=== PATIENT | male | born 1990 | race Caucasian/White ===

== ENCOUNTER → 2023-03-28 | Outpatient (CLI) | payer OTHER | END | disposition home or self-care (01) | LOC: RADMN 08:56 | DX: S93.409A Sprain of unspecified ligament of unspecified ankle, initial encounter (principal); M25.471 Effusion, right ankle; M77.51 Other enthesopathy of right foot and ankle; R60.0 Localized edema; X58.XXXA Exposure to other specified factors, initial encounter; Y93.89 Activity, other specified; Y92.89 Other specified places as the place of occurrence of the external cause; Y99.8 Other external cause status | CPT/HCPCS: 73721 ==